=== PATIENT | male | born 1950 | race Two or more races ===

== ENCOUNTER → 2019-05-16 | Outpatient (CLI) | payer OTHER ==
--- NOTE | 2019-05-16 12:57 | PFTRPT ---
Height: 73.00 Inches Weight: 196.00 Lbs BSA: 2.13 Diagnosis: J44.9 DATE OF PROCEDURE: 05/16/2019 ORDERED BY: Dr. Sue Spirometry: Pre and post bronchodilator study of excellent technical quality. Forced vital capacity reduced. FEV1 out of proportion. Obstructive index is, therefore, reduced. Flow Volume Loop: Expiratory limb of the flow volume loop consistent with very significant flow rate limitation. Favorable bronchodilator response is identified. Lung Volumes: Total lung capacity normal. Residual volume suggests significant air trapping. Diffusing Capacity: Diffusing capacity severely reduced but does correct for alveolar volume. Hemoglobin: Hemoglobin acceptable at 14.7. Airway Mechanics: Airway resistance elevated with a concomitant decrease in airway conductance. IMPRESSION: Severe obstructive ventilatory impairment with underlying air trapping. Diffusing capacity impairment. Favorable bronchodilator response. Please correlate clinically. MTDD
== END ==
LOC: M CARPUL 12:16
PROVIDERS: ATTEND Internal Medicine Pulmonary Disease
DX: J44.9 Chronic obstructive pulmonary disease, unspecified (principal)

== ENCOUNTER 2020-10-07 14:48 | Emergency (ER) | payer OTHER ==
[~2020-10-07] VITALS: Ht 185.4 cm; Wt 81.0 kg
[2020-10-07] MEDS ORDERED: SING10TA32 (15:21)
[2020-10-07] MEDS ORDERED: tiotropium (15:21)
[2020-10-07] MEDS ORDERED: AZIT-12 (15:21)
[2020-10-07] MEDS ORDERED: METF10004 (15:21)
[2020-10-07] MEDS ORDERED: SYMB80INH (15:21)
[2020-10-07] MEDS ORDERED: JARD1TAB3 (15:21)
--- NOTE | 2020-10-07 16:03 | REP ---
INDICATION: hematuria COMPARISON: None TECHNIQUE: Axial noncontrast images from the lung bases to the pubic symphysis with coronal and sagittal reformations. This CT examination was performed using the following dose reduction techniques: Automated exposure control, adjustment of mA and/or kv according to the patient's size, and use of iterative reconstruction technique. FINDINGS: There is evidence for cirrhosis and portal hypertension including nodular contour to the liver and scattered portosystemic shunting, and splenomegaly. There is a a dilated recanalized umbilical vein which extends into a 5 cm periumbilical hernia. There is a vague 5 cm hepatic mass in the anterior right lobe which cannot be further characterized. Pancreas, gallbladder, and bilateral adrenal glands are normal by noncontrast evaluation. The kidneys demonstrate few bilateral nonobstructing nephroliths measuring up to roughly 3 mm along with 1.5 cm vague left renal hypodensity possibly representing cyst. There is no evidence for hydroureteronephrosis or obstructing ureteral calculus. The enteric system is without obstruction or acute inflammatory process. Normal terminal ileum and appendix are identified in the right lower quadrant. Diverticulosis noted without acute diverticulitis. Pelvis demonstrates moderately prominent prostate gland with mass effect on the base of the bladder. No ascites. No free air. No obvious adenopathy. Abdominal aorta without aneurysm. Musculoskeletal structures demonstrate age-related degenerative changes without acute osseous abnormality. Lung bases demonstrate moderate emphysematous changes. IMPRESSION: 1. Evidence for cirrhosis and portal hypertension with findings as described above. 2. Vague 5 cm hepatic mass in the right hepatic lobe. 3. Kidneys demonstrate bilateral nonobstructing calculi up to 3 mm and possible 1.5 cm left renal cyst. 4. Diverticulosis without acute diverticulitis. 5. No ascites, focal inflammatory stranding, or adenopathy. <Electronically signed by Jey Victoria > 10/07/20 [id number]
[2020-10-07 17:33] LABS: BASO # 0.1 10^3/uL (0.0-0.2); BASO % 0.7 % (0.0-1.0); EOS # 0.3 10^3/uL (0.0-0.5); EOS % 4.2 % (0.0-3.0); HEMATOCRIT 53.1 % (42.0-52.0); HEMOGLOBIN 17.7 g/dl (13.5-17.5); LYMPH # 1.1 10^3/uL (1.5-5.0); MEAN CORPUSCULAR HEMOGLOBIN 33.7 pg (27.0-33.0); MEAN CORPUSCULAR HGB CONC 33.3 g/dl (32.0-36.5); MONO # 0.5 10^3/uL (0.0-0.8); MONO % 7.5 % (2.0-8.0); NEUTROPHILS # 4.8 10^3/uL (1.5-8.5); NEUTROPHILS % 71.3 % (36.0-66.0); RED BLOOD COUNT 5.26 10^6/uL (4.30-6.10); WHITE BLOOD COUNT 6.7 10^3/uL (4.0-10.0)
[2020-10-07 18:00] LABS: ALBUMIN 4.3 GM/DL (3.2-5.2); ALT/SGPT 34 U/L (12-78); BILIRUBIN,DIRECT 0.4 MG/DL (0.0-0.2); BILIRUBIN,TOTAL 1.4 MG/DL (0.2-1.0); BLOOD UREA NITROGEN 17 MG/DL (7-18); CALCIUM LEVEL 9.3 MG/DL (8.8-10.2); CARBON DIOXIDE LEVEL 30 MEQ/L (21-32); CHLORIDE LEVEL 106 MEQ/L (98-107); GLOMERULAR FILTRATION RATE > 60.0 (>49); GLUCOSE, FASTING 108 MG/DL (70-100); LIPASE 77 U/L (73-393); POTASSIUM SERUM 4.3 MEQ/L (3.5-5.1); SODIUM LEVEL 140 MEQ/L (136-145)
[2020-10-07 18:16] LABS: PLATELET COUNT, AUTOMATED 77 10^3/uL (150-450)
[2020-10-07] MEDS ORDERED: NS 500 ML IV ONE (18:25)
[2020-10-07] MEDS ORDERED: ISOVUE-370 76% 100ML VIAL As Ordered ONE (18:29)
--- NOTE | 2020-10-07 20:08 | REPVR ---
PROCEDURE INFORMATION: Exam: CT Abdomen And Pelvis With Contrast Exam date and time: 10/07/2020 6:22 PM Age: 70 years old Clinical indication: Other: Hematuria; Additional info: Please include bladder delay; Hematuria; Per bowie TECHNIQUE: Imaging protocol: Computed tomography of the abdomen and pelvis with contrast. Radiation optimization: All CT scans at this facility use at least one of these dose optimization techniques: automated exposure control; mA and/or kV adjustment per patient size (includes targeted exams where dose is matched to clinical indication); or iterative reconstruction. Contrast material: ISOVUE 370; Contrast volume: 100 ml; Contrast route: INTRAVENOUS (IV); COMPARISON: CT ABD PELVIS W/O CONTRAST 10/07/2020 3:42 PM FINDINGS: Lungs: No suspicious mass or airspace process in the visualized lung bases. Liver: Liver appears cirrhotic with nodular contours. Low-density right lobe hepatic lesion measuring 4.2 by 3.4 cm is present, nonspecific in appearance. Gallbladder and bile ducts: Gallbladder is present and shows no evidence of gallstone. Pancreas: Pancreas appears normal. No focal mass or peripancreatic inflammation. Spleen: Spleen is diffusely enlarged, without focal lesion. Punctate granulomatous calcifications are present within the spleen. Adrenal glands: Adrenal glands are normal in appearance. Kidneys and ureters: Kidneys are unremarkable aside from nonobstructive bilateral renal calculi. Stomach and bowel: No evidence of small bowel obstruction. No evidence of acute diverticulitis. Appendix: Normal caliber appendix is identified, with no adjacent inflammation. Intraperitoneal space: No pneumoperitoneum. Vasculature: Atherosclerotic change present in the aorta, without aneurysm. Main portal and splenic veins enhance normally. Lymph nodes: No enlarged lymph nodes. Urinary bladder: Urinary bladder appears normal. Delayed images of the bladder demonstrate no concerning asymmetry Reproductive: No overt enlargement of the prostate gland. Bones/joints: Bony structures are normal except for lumbar spine degenerative disc changes. Soft tissues: Recanalized paraumbilical vein indicates portal hypertension. Main portal and splenic veins enhance normally but are dilated and tortuous. Splenic hilum varices are also present. Umbilical hernia contains fat and dilated varices. IMPRESSION: 1. Bilateral nonobstructive renal calculi. No hydronephrosis or ureter stone and no CT abnormality involving the bladder. 2. Cirrhosis, splenomegaly and portal hypertension changes with varices. No significant ascites. 3. Hepatic parenchymal lesion in the right lobe measuring 4.2 cm, which carries a broad differential. Electronically signed by: Daniel Barron On 10/07/2020 20:08:32 PM
[2020-10-07 20:30] VITALS: BP 129/76
== END 2020-10-07 20:30 | disposition home or self-care (01) ==
LOC: M ED 14:48
DX: R16.2 Hepatomegaly with splenomegaly, not elsewhere classified (principal); R31.9 Hematuria, unspecified; J44.9 Chronic obstructive pulmonary disease, unspecified; K74.60 Unspecified cirrhosis of liver; K76.6 Portal hypertension; N20.0 Calculus of kidney; K57.30 Diverticulosis of large intestine without perforation or abscess without bleeding; Z91.030 Bee allergy status; Z79.899 Other long term (current) drug therapy
CPT/HCPCS: 74176; 74177; 80048; 80076; 81001; 83690; 85025; 85049; 85055; 96360; 99284; Q9967

== ENCOUNTER 2021-04-21 08:13 | Day surgery (SDC) | payer OTHER ==
[~2021-04-21] VITALS: Ht 185.4 cm; Wt 77.6 kg
[~2021-04-21 08:13] MED LIST: AZIT-12; CIPROFLOXACIN 400 MG in IV 1 EA IV ONE; COMBAER6 INH; DRIS50003 PO; ETAN50SY SC; FAMO40TA3 PO; FINA5TAB2 PO; FLON1SPR; GABA-282 PO; JARD1TAB3; LANTINJ4 SC; LR 1,000 ML IV ONE; METF10004; MUCI60TA7 PO; PRED10TA2; SING10TA32; SPIR1CAP INH; SYMB80INH; VENTAER INH; tiotropium
[2021-04-21] MEDS ORDERED: MIDAZOLAM INJ 2MG/2ML VIAL (J2250 PER 1MG) As Ordered ONE (09:33)
[2021-04-21] MEDS ORDERED: LIDOCAINE 2% 100MG/5ML SDV (FOR ANES.) As Ordered ONE (09:33)
[2021-04-21] MEDS ORDERED: fentaNYL 100 MCG/2 ML INJECTION (J3010) As Ordered ONE (09:33)
[2021-04-21] MEDS ORDERED: propofoL 200 MG/20 ML VIAL As Ordered ONE (09:33)
--- NOTE | 2021-04-21 09:48 | ROOPDOC ---
[facility] Report Of Operation Report of Operation DATE OF PROCEDURE: 04/21/21 PREPROCEDURE DIAGNOSES: [intermittent painless gross hematuria]. POSTPROCEDURE DIAGNOSES: [no worrisome pathology found]. PROCEDURE PERFORMED: [cysto, fluoro, bl retrogrades, left rigid and flexible ureteroscopy, left stent, attempt to advance flexible ureteroscope up right ureter]. SURGEON: [Hannah], SIDE STITCHING MACHINE OPERATOR: [none], MD ANESTHESIA: [general]. ESTIMATED BLOOD LOSS: Approximately [1-2] mL. COMPLICATIONS: [none]. REMARKS: [70yo wm with intermittent gross hematuria. W/u negative. Still bleeds intermittently. Low plt count. H/o liver ca s/p ablation. On finasteride. Today's surgery to better evaluate urinary tract. Informed consent obtained. Risks discussed including infection, bleeding, scarring, pain, injury to gu tract and others.]. FINDINGS: SPECIMENS REMOVED: [none] PROCEDURE NOTE: . DESCRIPTION OF PROCEDURE: [ Met with pt in preop area and surgery discussed. Informed consent obtained. Pt wished to proceed. Pt brought to OR room. General anesthesia secured. Dorsal litho position. W ell padded. Prep'd and draped in sterile fashion. Time out performed. Surgery done under iv antibiotic. Rigid cystoscopy performed. Some difficulty passing scope through urethra. Urethra bit tight from meatus to sphincter. No distinct stricture however. Prostate with bph, mainly bilobar. Prostate vascular. No bleeding however. Bladder thoroughly inspected. No pathology. No tumor. Right uo bit difficult to find. It is just below and medial to what looked like the uo at first. Retrograde performed under fluoro. No filling defects or hydronephrosis. 5fr open ended ureteral catheter used. Fluoro used intermittently during procedure. Some images saved. Right uo dilated with dual lumen catheter under fluoro. Despite this, I was unable to get flexible ureteroscope through uo. I tried for a bit and then decided to quit. I didn't want to cause more trauma than usual. Left uo found more easily than right. Another retrograde obtained. Again, no filling defects or hydronephrosis. To find uo, I first used a rigid ureteroscope. I anticipated same difficulty as encountered on the right. Wire passed up left ureter under fluoro. Flexible ureteroscope then passed over wire. Renal pelvis and calyces inspected. No tumor but several stones attached to papillae noted. Contrast injected through scope at one point. Once satisfied, scope removed and then rigid cystoscopy performed once again. Stent placed using Seldinger technique. Bladder emptied and cystoscope removed. Pt tolerated all well. Prostate small and benign on sarah. Home today. Talked with Anali after surgery.]. SERGIO EWING MD Apr 21, 2021 09:47
[2021-04-21] MEDS ORDERED: CONRAY-60 60% 50ML VIAL (Q9961) As Ordered ONE (10:14)
[2021-04-21] MEDS ORDERED: KETOROLAC 60MG 2ML VIAL As Ordered ONE (10:31)
[2021-04-21] MEDS ORDERED: dexameTHASONE 4 MG/ML 1ML VIAL (J1100 PER 1MG) As Ordered ONE ×2 (10:31→10:32)
[2021-04-21] MEDS ORDERED: ONDANSETRON 4MG/2ML VIAL As Ordered ONE (10:31)
[2021-04-21] MEDS ORDERED: BACT800T5 PO (11:21)
[2021-04-21] MEDS ORDERED: HYDR-3713 PO (11:21)
[2021-04-21] MEDS ORDERED: OXYB5TAB10 PO (11:21)
[2021-04-21] MEDS ORDERED: PYRI1TAB5 PO (11:21)
--- NOTE | 2021-04-21 11:25 | REP ---
INDICATION: BILATERAL URETEROSCOPY. COMPARISON: CT 10/07/2020. TECHNIQUE: Two C-arm views abdomen and pelvis. FINDINGS: There is contrast opacification of the pelvocaliceal systems bilaterally with no significant dilatation or definite filling defect. The visualized ureters are unremarkable. IMPRESSION: 3 minutes 4 seconds fluoroscopy time utilized. <Electronically signed by Roger Guardado > 04/21/21 [id number]
[2021-04-21] MEDS ORDERED: LR 1,000 ML IV SCH ×3 (11:30→13:45)
[2021-04-21] MEDS ORDERED: fentaNYL 100 MCG/2 ML INJECTION (J3010) IV PRN ×2 (11:30→13:45)
[2021-04-21] MEDS ORDERED: oxyCODONE 5MG TAB PO PRN ×2 (11:30→13:45)
[2021-04-21] MEDS ORDERED: ONDANSETRON 4MG/2ML VIAL IV PRN ×2 (11:30→13:45)
[2021-04-21] MEDS ORDERED: HYDROMORPHONE HCL 0.5 MG/ 0.5 ML SYRINGE (J1170 PER 1) IV PRN ×2 (11:30→13:45)
[2021-04-21] MEDS ORDERED: ALBUTEROL SULFATE 2.5 MG/0.5 ML INH NEB SOLN INH ONE ×2 (11:30→13:50)
[2021-04-21] MEDS ORDERED: HumaLOG INSULIN (NovoLOG) PER UNIT SC ONE ×2 (13:25→13:45)
[2021-04-21 14:00] VITALS: BP 138/77
== END 2021-04-21 14:05 | disposition home or self-care (01) ==
LOC: M SDC 08:13
PROVIDERS: ATTEND Urology
DX: R31.0 Gross hematuria (principal); E10.9 Type 1 diabetes mellitus without complications; Z79.4 Long term (current) use of insulin; Z79.84 Long term (current) use of oral hypoglycemic drugs; N40.0 Benign prostatic hyperplasia without lower urinary tract symptoms; J44.9 Chronic obstructive pulmonary disease, unspecified; C22.9 Malignant neoplasm of liver, not specified as primary or secondary; D69.6 Thrombocytopenia, unspecified; R16.1 Splenomegaly, not elsewhere classified; Z91.030 Bee allergy status; F41.9 Anxiety disorder, unspecified; F32.9 Major depressive disorder, single episode, unspecified; Z87.891 Personal history of nicotine dependence; Z79.899 Other long term (current) drug therapy
CPT/HCPCS: 52332; 74420; C1769; C2617; J0744; J1100; J1885; J2250; J2405; J3010; Q9961

== ENCOUNTER → 2021-05-13 | Outpatient (CLI) | payer OTHER ==
[~2021-05-13] MED LIST changes: +BACT800T5 PO; -CIPROFLOXACIN 400 MG in IV 1 EA IV ONE; +HYDR-3713 PO; -LR 1,000 ML IV ONE; +OXYB5TAB10 PO; +PYRI1TAB5 PO
--- NOTE | 2021-05-14 14:15 | SLEEPCENT ---
DATE: 05/13/2021 ORDERED BY: POOL WEI M.D. Nocturnal polysomnography was performed for evaluation of sleep physiology in this patient with a history of nonrestorative sleep. Eight hours and 20 minutes of data were reviewed. There were 314.5 minutes of sleep identified. Sleep latency was prolonged at 73 minutes. REM latency was more so prolonged at 337 minutes. Sleep architecture showed fragmentation early in the study with one REM period late in the test and two periods of wake resulting in reduced sleep efficiency of 63.5%. The patient's electrocardiogram showed a sinus rhythm with PVCs. Average heart rate of 75 beats per minute. EEG showed fairly normal waveforms for wake and sleep. There were 41 respiratory events identified of 10 seconds in duration or greater for an apnea-hypopnea index of 7.8. The events were more frequent in stage REM but not exclusive to that stage and were not exclusive to body posture. Arousals from respiratory events occurred 6.1 times per hour. Baseline saturation on room air was 93% . With respiratory events, oxygen desaturations were seen into the upper 80s. Significant limb activity was also noted in the EMG leads. Limb movement arousal index was borderline at 8.8. IMPRESSIONS: Obstructive sleep apnea syndrome (G47.33). Apnea-hypopnea index 7.8. RECOMMENDATION: The patient should be encouraged to return to [facility] for [facility]. In the interim, alcohol and sedative avoidance should be practiced and caution exercised during the operation of motor vehicles. cc: Dr. Dawn
== END ==
LOC: M SLEEP 20:00
PROVIDERS: ATTEND Internal Medicine Pulmonary Disease
DX: G47.30 Sleep apnea, unspecified (principal)

== ENCOUNTER → 2021-12-04 | Outpatient (REF) | payer OTHER ==
[2021-12-04 18:20] LABS: APPEARANCE, URINE CLEAR (CLEAR); BACTERIA, URINE AUTO NEGATIVE (NEGATIVE); BILIRUBIN, URINE AUTO NEGATIVE (NEGATIVE); BLOOD, URINE BLOOD NEGATIVE (NEGATIVE); COLOR, URINE STRAW (YELLOW); GLUCOSE, URINE (UA) AUTO 3+ mg/dL (NEGATIVE); KETONE, URINE AUTO TRACE mg/dL (NEGATIVE); LEUKOCYTE ESTERASE, URINE AUTO TRACE (NEGATIVE); NITRITE, URINE AUTO NEGATIVE (NEGATIVE); PROTEIN, URINE AUTO NEGATIVE (NEGATIVE); RBC, URINE AUTO 1 /HPF (0-3); SPECIFIC GRAVITY URINE AUTO 1.025 (1.002-1.035); SQUAMOUS EPITHELIAL CELL UR AU 0 /HPF (0-6); UROBILINOGEN, URINE AUTO 0.2 mg/dL (0.0-2.0); WBC, URINE AUTO 22 /HPF (0-3)
== END ==
LOC: M SMT 16:51
PROVIDERS: ATTEND Urology
DX: R31.0 Gross hematuria (principal)

== ENCOUNTER 2023-02-25 10:09 | Day surgery (SDC) | payer MEDICARE, OTHER ==
[~2023-02-25] VITALS: Ht 185.4 cm; Wt 71.9 kg
[~2023-02-25 10:09] MED LIST changes: +ALBU2.5V10 NEB; +ALPR0.25; +AZIT-12 PO; +BUSP10TA PO; +CYCL5TAB PO; +CYPR4TA PO; +FLOM0.4C39 PO; +GLIP10TA PO; -JARD1TAB3; +JARD1TAB3 PO; +MONT-5; +PANT40TA29 PO; +PRED20TA PO; -SING10TA32; +ZOLO100T PO
[2023-02-25] MEDS ORDERED: ceFAZolin SOD 2 GM in IV 1 EA IV ONE (10:40)
[2023-02-25] MEDS ORDERED: INSULIN LISPRO (NovoLOG) PER UNIT SC PRN (11:05)
[2023-02-25] MEDS ORDERED: LR 1,000 ML IV SCH ×2 (11:05→15:00)
[2023-02-25] MEDS ORDERED: ONDANSETRON 4MG 2ML VIAL As Ordered ONE (13:22)
[2023-02-25] MEDS ORDERED: fentaNYL 100 MCG/2 ML INJECTION As Ordered ONE (13:22)
[2023-02-25] MEDS ORDERED: propofoL 200 MG/20 ML VIAL As Ordered ONE (13:22)
[2023-02-25] MEDS ORDERED: LIDOCAINE 2% 100MG/5ML SDV (FOR ANES.) As Ordered ONE (13:23)
[2023-02-25] MEDS ORDERED: ISOVUE-300 61% 100ML VIAL As Ordered ONE (13:50)
[2023-02-25] MEDS ORDERED: KETAMINE HCL 200MG/20ML VIAL As Ordered ONE (14:08)
[2023-02-25] MEDS ORDERED: fentaNYL 100 MCG/2 ML INJECTION IV PRN (15:00)
[2023-02-25] MEDS ORDERED: ONDANSETRON 4MG 2ML VIAL IV PRN (15:00)
[2023-02-25] MEDS ORDERED: FLUC10TA PO (15:03)
[2023-02-25] MEDS ORDERED: BACT800T5 PO (15:03)
[2023-02-25 15:50] VITALS: BP 115/72; TEMP 98; O2SAT 96
== END 2023-02-25 16:09 | disposition home or self-care (01) ==
LOC: M SDC 10:09
PROVIDERS: ATTEND Urology
DX: N13.2 Hydronephrosis with renal and ureteral calculous obstruction (principal); N20.0 Calculus of kidney; E11.9 Type 2 diabetes mellitus without complications; K21.9 Gastro-esophageal reflux disease without esophagitis; F41.9 Anxiety disorder, unspecified; Z91.030 Bee allergy status; J44.9 Chronic obstructive pulmonary disease, unspecified; Z79.51 Long term (current) use of inhaled steroids; Z79.899 Other long term (current) drug therapy; Z79.84 Long term (current) use of oral hypoglycemic drugs; Z79.4 Long term (current) use of insulin; N40.0 Benign prostatic hyperplasia without lower urinary tract symptoms
CPT/HCPCS: 52332; 52356; 74420; 87088; 87186; C1769; C2617; J0690; J1100; J2405; J3010; Q9967